=== PATIENT | female | born 1965 | race Caucasian/White ===

== ENCOUNTER 2021-09-05 14:27 | Outpatient (CLI) | payer BC, SELFPAY ==
--- NOTE | 2021-09-05 14:35 | MM_ITS ---
WS: [id number] Bilateral screening digital mammogram, 09/05/2021 Clinical Data: SCREENING Comparison: 09/09/2019, 08/16/2018, 09/02/2017, 08/12/2017, 05/12/2012 Findings: The breast parenchymal pattern shows heterogeneous density No spiculated masses or clustered calcific ations are seen. There are no secondary signs of carcinoma. MM/[id number] Impression: 1. Negative bilateral mammogram unchanged. 2. Recommend annual screening mammograms. BIRADS: 1-Negative FOLLOW UP: 1 Year Follow-up The CAD thread checker was used.
== END 2021-09-05 14:28 | disposition home or self-care (01) ==
LOC: RADSHAW 14:35
PROVIDERS: PCP Family Medicine; Visit Provider Family Medicine
DX: Z12.31 Encounter for screening mammogram for malignant neoplasm of breast (principal)
CPT/HCPCS: 77067

== ENCOUNTER 2022-09-09 10:06 | Outpatient (CLI) | payer BC, SELFPAY ==
--- NOTE | 2022-09-09 10:18 | MM_ITS ---
WS: [id number] VIEWS: MLO and CC views both breasts. 3D digital tomosynthesis is also included in this exam. Comparison made with prior exam of 05/12/2012, 08/12/2017, 08/16/2018, 09/09/2019, 09/05/2021.. Findings: There was no sign of mass, architectural distortion or suspicious calcification in either breast. Sta ble appearing nodular densities in both breasts.Heterogeneously dense MM/[place] [id number] Impression: BI-RADS: 2-Benign FOLLOW-UP: 1 Year Follow-up This mammogram was also analyzed by the Computer Aided Detection System R2 Imag e Opinion Polls Survey Worker.
== END 2022-09-09 10:07 | disposition home or self-care (01) ==
LOC: RAD 10:07
PROVIDERS: PCP Family Medicine; Visit Provider Family Medicine
DX: Z12.31 Encounter for screening mammogram for malignant neoplasm of breast (principal)
CPT/HCPCS: 77063; 77067

== ENCOUNTER 2023-09-22 09:37 | Outpatient (CLI) | payer BC, SELFPAY ==
--- NOTE | 2023-09-22 09:44 | MM_ITS ---
WS: [id number] Bilateral screening 3D tomosynthesis digital mammogram, 09/22/2023 Clinical Data: SCREEN Comparison: 09/09/2022, 09/05/2021, 09/09/2019, 08/16/2016, 08/16/2018, 09/02/2017, 08/12/2017, 2011. Findings: The breast parenchymal pattern shows fibroglandular tissue. No spiculated masses or clustered calcifi cations are seen. There are no secondary signs of carcinoma. Impression: 1. Negative bilateral mammogram unchanged. 2. Recommend annual screening mammograms. MM/[place] [id number] BIRADS: 1-Negative FOLLOW UP: 1 Year Follow-up The CAD field checker was used.
== END 2023-09-22 09:38 | disposition home or self-care (01) ==
LOC: RAD 09:37
PROVIDERS: PCP Family Medicine; Visit Provider Family Medicine
DX: Z12.31 Encounter for screening mammogram for malignant neoplasm of breast (principal)
CPT/HCPCS: 77063; 77067

== ENCOUNTER 2023-11-19 08:10 | Outpatient (CLI) | payer BC, SELFPAY ==
--- NOTE | 2023-11-19 08:23 | US_ITS ---
WS: [id number] RIGHT UPPER QUADRANT ULTRASOUND HISTORY: ABNORMAL LEVELS OF OTHER SERUM ENZYMES COMPARISON: None available. Liver: 14.1 cm in length. Normal size liver and echogenicity. No bile duct dilatation or mass. Portal Vein: Normal hepatopetal flow with monophasic waveform. Gallbladder: Prior surgical removal. CBD: 0.4 cm Pancreas: Normal size and echogenicity. Right kidney: 11.1 cm in length. Normal size and echogenicity. No hydronephrosis or mass. Aorta and IVC: Unremarkable abdominal aorta and IVC. No ascites. IMPRESSION: 1. Prior cholecystectomy. 2. Otherwise negative RIGHT upper quadrant ultrasound.
== END 2023-11-19 08:11 | disposition home or self-care (01) ==
LOC: RAD 08:11
PROVIDERS: PCP Family Medicine; Visit Provider Family Medicine
DX: R74.8 Abnormal levels of other serum enzymes (principal); Z90.49 Acquired absence of other specified parts of digestive tract
CPT/HCPCS: 76705

== ENCOUNTER 2024-09-29 15:09 | Outpatient (CLI) | payer BC, SELFPAY ==
--- NOTE | 2024-09-29 | MM_ITS ---
WS: [id number] BILATERAL SCREENING DIGITAL TOMOSYNTHESIS MAMMOGRAM WITH CAD HISTORY: ANNUAL SCREENING COMPARISON: 09/22/2023, 09/09/2022 Bilateral CC and MLO views with tomosynthesis and synthetic mammography submitted. Computer aided det ection analyzed. Breast composition: The breasts are heterogeneously dense, which may obscure small masses. No suspici ous masses, microcalcifications or architectural distortion. Stable asymmetries in each breast. MM/MM scr tomosynthesis [id number] IMPRESSION: BI-RADS: 2 - Benign FOLLOW UP: 1 Year Follow-up
== END 2024-09-29 15:10 | disposition home or self-care (01) ==
LOC: RAD 15:12
PROVIDERS: PCP Family Medicine; Visit Provider Family Medicine
DX: Z12.31 Encounter for screening mammogram for malignant neoplasm of breast (principal); R92.333 Mammographic heterogeneous density, bilateral breasts; N64.89 Other specified disorders of breast
CPT/HCPCS: 77063; 77067